=== PATIENT | male | born 1985 | race Caucasian/White ===

== ENCOUNTER 2020-07-14 13:19 | Inpatient (IN) | payer OTHER ==
[~2020-07-14] VITALS: Ht 167.6 cm; Wt 102.4 kg
[2020-07-14 14:10] LABS: HEMOGLOBIN 18.2 g/dl (13.5-17.5); MEAN CORPUSCULAR HEMOGLOBIN 29.5 pg (27.0-33.0); MEAN CORPUSCULAR HGB CONC 33.7 g/dl (32.0-36.5); MEAN CORPUSCULAR VOLUME 87.7 fl (80.0-96.0); PLATELET COUNT, AUTOMATED 265 10^3/uL (150-450); RED BLOOD COUNT 6.16 10^6/uL (4.30-6.10); WHITE BLOOD COUNT 9.4 10^3/uL (4.0-10.0)
[2020-07-14 14:37] LABS: AMPHETAMINES LEVEL URINE NEGATIVE (NEGATIVE); BARBITURATES URINE NEGATIVE (NEGATIVE); BENZODIAZEPINES URINE NEGATIVE (NEGATIVE); CANNABINOIDS URINE NEGATIVE (NEGATIVE); COCAINE METABOLITE URINE NEGATIVE (NEGATIVE); METHADONE URINE NEGATIVE (NEGATIVE); OPIATES URINE NEGATIVE (NEGATIVE); PHENCYCLIDINE URINE NEGATIVE (NEGATIVE)
[2020-07-14 14:50] LABS: ACETAMINOPHEN LEVEL < 2.0 UG/ML (10.0-30.0); ALBUMIN 4.8 GM/DL (3.2-5.2); ALT/SGPT 48 U/L (12-78); BILIRUBIN,DIRECT 0.2 MG/DL (0.0-0.2); BILIRUBIN,TOTAL 0.8 MG/DL (0.2-1.0); BLOOD UREA NITROGEN 12 MG/DL (7-18); CALCIUM LEVEL 9.7 MG/DL (8.5-10.1); CARBON DIOXIDE LEVEL 30 MEQ/L (21-32); CHLORIDE LEVEL 104 MEQ/L (98-107); CREATININE FOR GFR 1.11 MG/DL (0.70-1.30); ETHYL ALCOHOL (ETHANOL) < 0.003 % (0.000-0.010); GLOMERULAR FILTRATION RATE > 60.0 (>60); GLUCOSE, FASTING 88 MG/DL (70-100); POTASSIUM SERUM 4.1 MEQ/L (3.5-5.1); SALICYLATE LEVEL < 1.7 MG/DL (5.0-30.0); SODIUM LEVEL 140 MEQ/L (136-145); TOTAL PROTEIN 7.8 GM/DL (6.4-8.2)
[2020-07-14 17:23] LABS: RSV AMPLIFICATION NEGATIVE (NEGATIVE)
[2020-07-14] MEDS ORDERED: MOM 30ML SUSPENSION UDC PO PRN (18:15)
[2020-07-14] MEDS ORDERED: MAALOX 30 ML SUSP *UDC PO PRN (18:15)
[2020-07-14] MEDS ORDERED: ACETAMINOPHEN TAB 650MG DOSE (2X325MG) PO PRN (18:15)
[2020-07-14] MEDS ORDERED: TRAZ-252 PO (18:20)
[2020-07-14] MEDS ORDERED: FLUO20CA20 PO (18:20)
[2020-07-14 20:48] VITALS: BP 128/85
[2020-07-15 07:11] VITALS: BP 154/97
--- NOTE | 2020-07-15 12:50 | MHHPE ---
HISTORY AND PHYSICAL DATE OF ADMISSION: 07/14/2020 IDENTIFYING DATA: He is a 35-year-old white male, , living with his and two children who was admitted because of suicidal and homicidal thoughts. CHIEF COMPLAINT: "I had suicidal and homicidal thoughts before. Now I don't have it." HISTORY OF PRESENT ILLNESS: The patient was deployed in [facility]. He came back from [facility] recently. Two days ago he came to know that his had an affair with someone in [place]. He reports he was devastated. He confronted his and left home and told his therapist that he had suicidal and homicidal thoughts and he was sent to [facility]. He reports his sleep is poor. Energy is low. Some loss of interest. Currently denies suicidal or homicidal ideas. Denies any history of manic episodes. However, he reports that he is sad about his subordinates dying in a span of two years, committing suicide. Denies any anxiety issues. PAST PSYCHIATRIC HISTORY: In 2019 he was admitted to a psychiatric hospital in [facility]. He was prescribed an SSRI, probably fluoxetine 20 mg. He has been taking the medication regularly. SUICIDAL HISTORY: He denies suicidal attempt in the past. DRUG/ALCOHOL HISTORY: Denies drug or alcohol use. MEDICAL HISTORY: He has chronic back ache. FAMILY HISTORY: Denies family history of mental illness. PERSONAL HISTORY: He was raised by mother and stepfather. He has one stepsister and one stepbrother. His relationship with them is good. He has put 11 years of service in the . He works as an industrial electrical technician. No history of abuses. MENTAL STATUS EXAMINATION: Casually dressed in hospital attire. Cooperative. Made good eye contact. Speaks in low tone. |Psychomotor activity is mildly retarded. Speech rate and rhythm are good. Thought content: Currently denies suicidal or homicidal ideas, denied any auditory and visual hallucinations. His memory remote and recent is good. Insight and judgment are fair to limited. VITAL SIGNS: Temperature 97.3, pulse 100, respiratory rate 18, blood pressure is 154/97, pulse oximetry 97. LABS: CBC, CMP within normal limits. Toxicology is negative. DIAGNOSIS: Major depressive disorder, recurrent. ASSESSMENT AND PLAN: The patient currently is severely depressed. He had thoughts of hurting himself and hurting the person with whom his was cheating. 1. I will admit him to [facility]. 2. Keep him on suicide precautions. 3. He will be seen by the hospitalist for medical needs. 4. He will be seen by Case Management and [facility]. 5. He will attend activities, groups, and individual therapy. 6. His medications are fluoxetine 20 mg once daily and Seroquel 50 mg at night, titrate the dose. ESTIMATED LENGTH OF STAY: Five to six days. Time spent is 45 minutes.
--- NOTE | 2020-07-15 13:00 | HPEPDOC ---
[facility] Medical History & Physical Date of Admission Jul 14, 2020 Date of Service: Jul 15, 2020 History and Physical Chief complaint: Presented to [facility] for suicidal ideation History of present illness: She is a 35-year-old male with past medical history bulimia and chronic back pain who presented to [facility] after expressing suicidal ideation. Patient was admitted to the inpatient mental health unit under the care of psychiatry. Currently being managed by psychiatry. Hospitalist service was consulted for medical screening evaluation. Currently patient reports a mild headache. Denies any nausea, but does report that he induced vomiting this morning. Denies any chest pain, shortness breath, palpitations. Has not experience any abdominal pain, diarrhea, or burning with urination. Reports his last bowel movement was 3 days prior denies any recent fevers or chills. Past Medical History: Bulimia Chronic back pain Past Surgical History: Left wrist ganglion cyst removal Tonsillectomy Allergies: See below Medications: See below Family History: - Father with a history of prostate cancer Social History: - Denies the use of alcohol, tobacco or illicit drugs - Denies recent travel or sick contacts - Lives with and 2 children - Occupation; she reports that he works as an electrical systems designer in the [employer] Review of Systems: 10 point review of systems complete, all negative otherwise stated in HPI Physical exam: - Vitals: BP [154/97], HR [100], RR [18], Sat [97%RA], Temp [97.3F] - General: Sitting up in chiar, No acute distress, Speaking in full sentences, AAOx3 - HEENT: NC, AT, PERRLA - CVS: RRR, +S1S2 - Lungs: Fair air entry bilaterally, No appreciable wheezing / rales / rhonchi - Abdomen: Soft, Non-distended, Non-tender - Extremities: + PPx4, No lower extremity edema, No calf tenderness - Neuro: No focal motor or sensory deficit - Skin: No visible rashes Labs: See below Imaging: See below EKG: See below Assessment and Plan: Suicidal ideation - Patient has been admitted to the inpatient mental health unit under the care of psychiatry - Currently being managed by psychiatry Bulimia - No electrographic abnormalities noted Chronic back pain - c/w Tylenol PRN DVT prophylaxis - Will c/w early ambulation Thank you for this consultation; hospitalist service will now sign off. Please reconsult as needed Vital Signs Vital Signs Date Time Temp Pulse Resp B/P (MAP) Pulse Ox O2 Delivery O2 Flow Rate FiO2 07/15/20 07:11 97.3 100 18 154/97 (116) 97 Room Air Laboratory Data Labs 24H Laboratory Tests 2 07/14/20 13:29: Nucleated Red Blood Cells % (auto) 0.0, Anion Gap 6L, Glomerular Filtration Rate > 60.0, Calcium Level 9.7, Total Bilirubin 0.8, Direct Bilirubin 0.2, Aspartate Amino Transf (AST/SGOT) 22, Alanine Aminotransferase (ALT/SGPT) 48, Alkaline Phosphatase 106, Total Protein 7.8, Albumin 4.8, Albumin/Globulin Ratio 1.6, Thyroid Stimulating Hormone (TSH) 1.100, Salicylates Level < 1.7L, Acetaminophen Level < 2.0L, Ethyl Alcohol Level < 0.003 07/14/20 13:41: Urine Opiates Screen NEGATIVE, Urine Methadone Screen NEGATIVE, Urine Barbiturates Screen NEGATIVE, Urine Phencyclidine Screen NEGATIVE, Urine Amphetamines Screen NEGATIVE, Urine Benzodiazepines Screen NEGATIVE, Urine Cocaine Metabolite Screen NEGATIVE, Urine Cannabinoids Screen NEGATIVE 07/14/20 16:34: Coronavirus (COVID-19)(PCR) NEGATIVE, Influenza Type A (RT-PCR) NEGATIVE, Influenza Type B (RT-PCR) NEGATIVE, Respiratory Syncytial Virus (PCR) NEGATIVE CBC/BMP Laboratory Tests 07/14/20 13:29 Home Medications Scheduled Fluoxetine Hcl (Fluoxetine HCl) 20 Mg Capsule, 20 MG PO DAILY Trazodone HCl (Trazodone HCl) 50 Mg Tablet, 50 MG PO QHS Allergies Coded Allergies: No Known Drug Allergies (Verified Allergy, Unknown, 07/14/20) RAFFAELE ROBERTS MD Jul 15, 2020 13:00
[2020-07-15 17:51] VITALS: BP 143/76
[2020-07-15] MEDS: traZODone 50 MG TAB PO PRN (21:39)
[2020-07-16 06:00] VITALS: BP 133/82
[2020-07-16 12:23] LABS: H PYLORI QUALITATIVE IgG NEGATIVE (NEGATIVE)
[2020-07-16 12:30] LABS: BASO % 0.4 % (0.0-1.0); EOS # 0.2 10^3/uL (0.0-0.5); EOS % 2.6 % (0.0-3.0); HEMATOCRIT 51.3 % (42.0-52.0); HEMOGLOBIN 17.6 g/dl (13.5-17.5); LYMPH # 2.6 10^3/uL (1.5-5.0); LYMPH % 32.9 % (24.0-44.0); MEAN CORPUSCULAR HEMOGLOBIN 29.4 pg (27.0-33.0); MEAN CORPUSCULAR HGB CONC 34.3 g/dl (32.0-36.5); MEAN CORPUSCULAR VOLUME 85.8 fl (80.0-96.0); MONO # 0.6 10^3/uL (0.0-0.8); NEUTROPHILS # 4.5 10^3/uL (1.5-8.5); NEUTROPHILS % 56.8 % (36.0-66.0); PLATELET COUNT, AUTOMATED 252 10^3/uL (150-450); RED BLOOD COUNT 5.98 10^6/uL (4.30-6.10)
[2020-07-16 12:41] LABS: ALBUMIN 4.7 GM/DL (3.2-5.2); ALT/SGPT 40 U/L (12-78); BILIRUBIN,DIRECT 0.2 MG/DL (0.0-0.2); BILIRUBIN,TOTAL 0.7 MG/DL (0.2-1.0); BLOOD UREA NITROGEN 16 MG/DL (7-18); CREATININE FOR GFR 1.14 MG/DL (0.70-1.30); GLOMERULAR FILTRATION RATE > 60.0 (>60); TOTAL PROTEIN 7.1 GM/DL (6.4-8.2)
--- NOTE | 2020-07-16 16:40 | MHIPN ---
[facility] PROGRESS NOTE DATE: 07/16/2020 SUBJECTIVE: "I'm doing fine. I spoke to my , and we want to go for marriage counseling." OBJECTIVE: He is a 35-year-old male, , living with his two children. Was admitted because of suicidal and homicidal thoughts. Reportedly he found out the infidelity of his and confronted her and became extremely depressed and has suicidal thoughts. Currently reports he has been doing well. This is his second psychiatric hospitalization. MENTAL STATUS EXAMINATION: Cooperative. Made good eye contact. He is casually dressed. Speaks in low tone. Speech rate, rhythm, volume are good. Thought content: Currently denies any suicidal or homicidal ideas. Denies auditory or visual hallucinations. His memory, remote, recent, is good. Insight and judgment are fair to limited. VITAL SIGNS: Temperature 97.9, pulse is 98, respiration 16, blood pressure 133/82, pulse oximetry 98. DIAGNOSIS: Major depressive disorder, recurrent. PLAN: Continue Seroquel 25 mg once daily and fluoxetine 20 mg once daily. ESTIMATED LENGTH OF STAY: 4-5 days. TIME SPENT: 25 minutes.
[2020-07-16 17:50] VITALS: BP 145/98
[2020-07-17 06:30] VITALS: BP 131/71
[2020-07-17] MEDS: QUEtiapine FUMARATE 25 MG TAB PO SCH (08:19)
[2020-07-17] MEDS: FLUoxetine 20 MG CAP PO SCH (08:19)
--- NOTE | 2020-07-17 08:20 | REP ---
INDICATION: scheduled, nausea with vomiting, unspecified COMPARISON: None. TECHNIQUE: Real time stanley scale ultrasound examination using curved array transducer. FINDINGS: Liver is normal in appearance and without obvious abnormality. Pancreas is incompletely evaluated due to interposed bowel gas and visualized portions appear normal. The gallbladder demonstrates 5 mm polyp without wall thickening, gallstones, or pericholecystic fluid. No biliary ductal dilatation is appreciated and the common bile duct measures 3.7 mm diameter. Right kidney is normal in reniform shape without hydronephrosis and measures 10.1 x 5.0 x 4.6 cm cm. No ascites in the visualized right upper quadrant. IMPRESSION: Somewhat limited examination due to bowel gas and technical factors including limited scan window. No obvious significant abnormality appreciated. <Electronically signed by Brody Pierre > 07/17/20 [id number]
[2020-07-17 16:00] VITALS: BP 118/64
--- NOTE | 2020-07-17 16:03 | MHIPNPDOC ---
[facility] Progress Note Progress Note DATE OF SERVICE: 07/17/20 SUBJECTIVE: "I'm doing fine. I spoke to my , and we want to go for marriage counseling." Pt reports he is drowsy slightly. OBJECTIVE: He is a 35-year-old male, , living with his two children. Was admitted because of suicidal and homicidal thoughts. Reportedly he found out the infidelity of his and confronted her and became extremely depressed and has suicidal thoughts. Currently reports he has been doing well. This is his second psychiatric hospitalization. Drowsiness because of medication side effect. MENTAL STATUS EXAMINATION: Cooperative. Made good eye contact. He is casually dressed. Speaks in low tone. Speech rate, rhythm, volume are good. Thought content: Currently denies any suicidal or homicidal ideas. Denies auditory or visual hallucinations. His memory, remote, recent, is good. Insight and judgment are fair to limited. DIAGNOSIS: Major depressive disorder, recurrent. PLAN: Continue Seroquel 25 mg once daily and fluoxetine 20 mg once daily. ESTIMATED LENGTH OF STAY: 4-5 days. TIME SPENT: 25 minutes.HISTORY: . Vital Signs Vital Signs Date Time Temp Pulse Resp B/P (MAP) Pulse Ox O2 Delivery O2 Flow Rate FiO2 07/17/20 06:30 98.3 104 18 131/71 (91) 98 Room Air Current Medications Current Medications Medications (Trade) Dose Ordered Sig/Taco Route PRN Reason Start Time Stop Time Status Last Admin Dose Admin Acetaminophen (Tylenol Tab) 650 mg Q6HP PRN PO HEADACHE or DISCOMFORT 07/14/20 18:15 Al Hydrox/Mg Hydrox/Simethicone (Mylanta) 30 ml Q4HP PRN PO HEARTBURN/INDIGESTION 07/14/20 18:15 Fluoxetine HCl (PROzac) 20 mg QAM PO 07/17/20 09:00 07/17/20 08:19 Home Med (Med Rec Complete!) ASDIRECTED XX 07/14/20 18:20 07/14/20 18:22 DC Magnesium Hydroxide (Milk Of Magnesia) 30 ml DAILYPRN PRN PO CONSTIPATION 07/14/20 18:15 Quetiapine Fumarate (SEROquel) 25 mg DAILY PO 07/17/20 09:00 07/17/20 08:19 Trazodone HCl (Desyrel) 50 mg QHSP PRN PO INSOMNIA 07/14/20 18:15 07/15/20 21:39 Allergies Coded Allergies: No Known Drug Allergies (Verified Allergy, Unknown, 07/14/20) DIONNE RAMIREZ MD Jul 17, 2020 16:03
[2020-07-17] MEDS: traZODone 50 MG TAB PO PRN (22:40)
[2020-07-18 06:36] VITALS: BP 111/55
[2020-07-18] MEDS: QUEtiapine FUMARATE 25 MG TAB PO SCH (08:56)
[2020-07-18] MEDS: FLUoxetine 20 MG CAP PO SCH (08:56)
--- NOTE | 2020-07-18 15:46 | MHIPNPDOC ---
[facility] Progress Note Progress Note DATE OF SERVICE: 07/18/20 SUBJECTIVE: "I'm doing fine. I spoke to my , and we want to go for marriage counseling." Pt reports he is drowsy slightly. OBJECTIVE: He is a 35-year-old male, , living with his two children. Was admitted because of suicidal and homicidal thoughts. Reportedly he found out the infidelity of his and confronted her and became extremely depressed and has suicidal thoughts. Currently reports he has been doing well. This is his second psychiatric hospitalization. Drowsiness because of medication side effect. MENTAL STATUS EXAMINATION: Cooperative. Made good eye contact. He is casually dressed. Speaks in low tone. Speech rate, rhythm, volume are good. Thought content: Currently denies any suicidal or homicidal ideas. Denies auditory or visual hallucinations. His memory, remote, recent, is good. Insight and judgment are fair to limited. DIAGNOSIS: Major depressive disorder, recurrent. PLAN: Continue Seroquel 25 mg once daily and fluoxetine 20 mg once daily. ESTIMATED LENGTH OF STAY: 4-5 days. TIME SPENT: 25 minutes. Vital Signs Vital Signs Date Time Temp Pulse Resp B/P (MAP) Pulse Ox O2 Delivery O2 Flow Rate FiO2 07/18/20 06:36 98.5 88 18 111/55 (73) 97 Room Air Current Medications Current Medications Medications (Trade) Dose Ordered Sig/Taco Route PRN Reason Start Time Stop Time Status Last Admin Dose Admin Acetaminophen (Tylenol Tab) 650 mg Q6HP PRN PO HEADACHE or DISCOMFORT 07/14/20 18:15 Al Hydrox/Mg Hydrox/Simethicone (Mylanta) 30 ml Q4HP PRN PO HEARTBURN/INDIGESTION 07/14/20 18:15 Fluoxetine HCl (PROzac) 20 mg QAM PO 07/17/20 09:00 07/18/20 08:56 Home Med (Med Rec Complete!) ASDIRECTED XX 07/14/20 18:20 07/14/20 18:22 DC Magnesium Hydroxide (Milk Of Magnesia) 30 ml DAILYPRN PRN PO CONSTIPATION 07/14/20 18:15 Quetiapine Fumarate (SEROquel) 25 mg DAILY PO 07/17/20 09:00 07/18/20 08:56 Trazodone HCl (Desyrel) 50 mg QHSP PRN PO INSOMNIA 07/14/20 18:15 07/17/20 22:40 Allergies Coded Allergies: No Known Drug Allergies (Verified Allergy, Unknown, 07/14/20) DIONNE RAMIREZ MD Jul 18, 2020 15:46
[2020-07-18 19:39] VITALS: BP 133/76
[2020-07-18] MEDS: traZODone 50 MG TAB PO PRN (21:10)
[2020-07-19 08:12] VITALS: BP 134/79
[2020-07-19] MEDS: FLUoxetine 20 MG CAP PO SCH (09:01)
[2020-07-19] MEDS: QUEtiapine FUMARATE 25 MG TAB PO SCH (09:01)
--- NOTE | 2020-07-19 13:39 | MHIPNPDOC ---
[facility] Progress Note Progress Note DATE OF SERVICE: 07/19/20 SUBJECTIVE: "I'm doing fine. I spoke to my , and we want to go for marriage counseling." Pt reports he is not drowsy today. OBJECTIVE: He is a 35-year-old male, , living with his two children. Was admitted because of suicidal and homicidal thoughts. Reportedly he found out the infidelity of his and confronted her and became extremely depressed and has suicidal thoughts. Currently reports he has been doing well. This is his second psychiatric hospitalization.PT improving. MENTAL STATUS EXAMINATION: Cooperative. Made good eye contact. He is casually dressed. Speaks in low tone. Speech rate, rhythm, volume are good. Thought content: Currently denies any suicidal or homicidal ideas. Denies auditory or visual hallucinations. His memory, remote, recent, is good. Insight and judgment are fair to limited. DIAGNOSIS: Major depressive disorder, recurrent. PLAN: Continue Seroquel 25 mg once daily and fluoxetine 20 mg once daily. ESTIMATED LENGTH OF STAY: 4-5 days. TIME SPENT: 25 minutes. Vital Signs Vital Signs Date Time Temp Pulse Resp B/P (MAP) Pulse Ox O2 Delivery O2 Flow Rate FiO2 07/19/20 08:12 97.4 66 16 134/79 (97) 99 Room Air Current Medications Current Medications Medications (Trade) Dose Ordered Sig/Taco Route PRN Reason Start Time Stop Time Status Last Admin Dose Admin Acetaminophen (Tylenol Tab) 650 mg Q6HP PRN PO HEADACHE or DISCOMFORT 07/14/20 18:15 Al Hydrox/Mg Hydrox/Simethicone (Mylanta) 30 ml Q4HP PRN PO HEARTBURN/INDIGESTION 07/14/20 18:15 Fluoxetine HCl (PROzac) 20 mg QAM PO 07/17/20 09:00 07/19/20 09:01 Home Med (Med Rec Complete!) ASDIRECTED XX 07/14/20 18:20 07/14/20 18:22 DC Magnesium Hydroxide (Milk Of Magnesia) 30 ml DAILYPRN PRN PO CONSTIPATION 07/14/20 18:15 Quetiapine Fumarate (SEROquel) 25 mg DAILY PO 07/17/20 09:00 07/19/20 09:01 Trazodone HCl (Desyrel) 50 mg QHSP PRN PO INSOMNIA 07/14/20 18:15 07/18/20 21:10 Allergies Coded Allergies: No Known Drug Allergies (Verified Allergy, Unknown, 07/14/20) DIONNE RAMIREZ MD Jul 19, 2020 13:39
[2020-07-19 16:46] VITALS: BP 122/61
[2020-07-19] MEDS: traZODone 50 MG TAB PO PRN (21:09)
[2020-07-20 06:00] VITALS: BP 119/78
[2020-07-20] MEDS: QUEtiapine FUMARATE 25 MG TAB PO SCH (08:50)
[2020-07-20] MEDS: FLUoxetine 20 MG CAP PO SCH (08:50)
[2020-07-20 19:07] VITALS: BP 150/86
[2020-07-20] MEDS: traZODone 50 MG TAB PO PRN (21:03)
[2020-07-21 06:27] VITALS: BP 130/68
[2020-07-21] MEDS ORDERED: QUET25TA3 PO (09:09)
[2020-07-21] MEDS: QUEtiapine FUMARATE 25 MG TAB PO SCH (09:19)
[2020-07-21] MEDS: FLUoxetine 20 MG CAP PO SCH (09:19)
--- NOTE | 2020-07-21 11:33 | MHDS ---
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 Reportedly, he found out infidelity of his when he was in [facility], confronted her and became extremely depressed. Had suicidal thoughts. For history of present illness (HPI), past psychiatric history, substance abuse history, medical history, social history, please refer to initial evaluation. COURSE IN THE HOSPITAL: Patient initially was depressed, contemplating suicidal plans, isolative. He was placed on Seroquel 25 mg once and fluoxetine 20 mg once daily. Patient was also provided individual, group and milieu therapy. He made gradual recovery, started coming out of his isolation, started attending groups. He was more vocal, interacted with peers and staff. Denied any side effects of the medication. Denied any suicidal or homicidal ideas. He was stable at the time of discharge. MENTAL STATUS EXAMINATION: Casually dressed with clean clothes, cooperative. Made good eye contact. Speech: Rate, rhythm, volume are good. Mood is euthymic. Affect is full range. Thought process: Linear, goal-directed. Thought content: Denied any suicidal or homicidal ideas. Perception: Denied any auditory or visual hallucinations. Memory: Immediate, remote, recent are good. DIAGNOSIS: Major depressive disorder, recurrent. VITAL SIGNS: Temperature 97.7, pulse 67, respiratory rate 12, blood pressure 130/68, pulse oximetry 96. LABORATORY DATA: CBC within normal limits. His hemoglobin was high. CMP within normal limits. Toxicology: Negative. DISCHARGE MEDICATIONS: - fluoxetine 20 mg once daily - quetiapine 25 mg at night DISCHARGE INSTRUCTIONS: Patient will be discharged home at [place], will be followed up at [facility]. Patient reports that he and his are reconciled. They want to go to marriage counseling. TIME SPENT: Less than 30 minutes.
[2020-07-22 13:07] LABS: IGASUB2 179.2 mg/dL (73.2-301.2)
== END 2020-07-21 11:07 | disposition home or self-care (01) | DRG 885 ==
LOC: M ED 13:19 → M ED INP 18:11 → M PSY 20:35
PROVIDERS: ADMIT Psychiatry & Neurology Psychiatry; ATTEND Psychiatry & Neurology Psychiatry
DX: F33.2 Major depressive disorder, recurrent severe without psychotic features (principal); R45.851 Suicidal ideations; F50.2 Bulimia nervosa; Z91.82 Personal history of military deployment; R45.850 Homicidal ideations; Z20.822 Contact with and (suspected) exposure to COVID-19; Z79.899 Other long term (current) drug therapy; Z63.0 Problems in relationship with spouse or partner